=== PATIENT | female | born 1980 ===

== ENCOUNTER 2018-08-10 10:58 | Emergency (ER) | payer SELFPAY ==
[2018-08-10 12:02] VITALS: BMI 28.7
[2018-08-10] MEDS ORDERED: Lactated Ringer's 1,000 ML IV SCH (12:15)
[2018-08-10 13:14] LABS: SQUAMOUS EPITHIAL 2 /hpf (0-5); URINE BACTERIA MANY (<OCC); URINE BILIRUBIN NEGATIVE (NEGATIVE); URINE BLOOD NEGATIVE (NEGATIVE); URINE CLARITY SLIGHTY-CLOUDY (Clear); URINE COLOR YELLOW (YELLOW); URINE GLUCOSE (UA) >=500 mg/dL (NEGATIVE); URINE LEUKOCYTE ESTERASE NEG Leu/uL (Negative); URINE PROTEIN NEGATIVE (NEGATIVE); URINE UROBILINOGEN 0.2-1.0 mg/dL (0.2-1.0)
--- NOTE | 2018-08-10 15:31 | US ---
Date of service: 08/10/2018 PROCEDURE: Limited Ob ultrasound HISTORY: r/o labor risk, evaluate cervical length COMPARISON: None available. TECHNIQUE: Transvaginal pelvic ultrasound was performed. FINDINGS: The cervix is long and closed. The cervical length measures 3.9 cm. IMPRESSION: Long and closed cervix. Cervical length measures 3.9 cm.
--- NOTE | 2018-08-10 16:59 | OBHP ---
Datetime: 08/10/2018 12:11 IP Adm Impression: , intrauterine IP Admit Plan: Observation/Evaluation; Discharge home Admit Comment, IP Provider: 37-year-old at 27.2 weeks (dated on U/S) presents from [facility] with abdominal pain that waxes and wanes for a duration of 1 day. Prior to today the pain u sually resolved with food however patient feels like it is getting worse. Pain is RUQ and LLQ, does n ot radiate and feels like cramping. She also complains of pain with urination. 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 She denies fever, vaginal bleeding, l oss of fluid from vagina, headache, nausea, change in vision, chest pain, SOB, vomiting, diarrhea, ne w-onset edema and sick contacts. Last sexual intercourse was January 2018. OBGYN: Dr Tovar PMH: chago, OB dx vaginitis today Meds: vaginal cream x3days Allergies: denies OBHx: Family Hx: denies Social: denies Surgical Hx: denies Labs: wnl as per patient, no records available for confirmation ROS: all other systems reviewed and negative unless noted in HPI. P.E: Vitally stable at this time. Patient is resting comfortably in her hospital bed. EFM: reactive NST Heart: S1 And S2 appreciated on exam. Lungs: Clear auscultation bilaterally. No wheezes, rhonchi or crackles. Abdomen: Gravid, soft.. Normo-active bowel sounds. Negative CVA tenderness. Mild tenderness to RUQ and LLQ palpation. Extremities: +2 distal pulses bilaterally. No lower extremity edema noted. A+P: 37-year-old at 27.2 weeks presents from primary OBGYN with abdominal pain for a duration of 1 day. -Continuous EFM: reactive -IVF: 1L LR -TV U/S: cervival length 3.9; closed -UA: many bacteria, 2 squam, 2 RBC, 5 WBC -C_S pending - will follow-up and will contact patient if antibiotics are necessary ([phone]) -ED precautions given Case seen and discussed with Dr Lala Chinchilla PGY1 OB Hospitalist Addendum: Pt seen and examined by me. Agree w/ above. 37 yo G1 at 27+2 wks c/o a bd pain on and off since yesterday w/ ctxns on the monitor. Pt denies urinary sx. Cervix closed an d thick on exam. FHT reassuring. Pt received IVF. U/s done: Cervix in long and closed, measuring 3 .9 cm. Pt w/ 1 ht glucola 220. Ua w/ many bacteria and 2 sq epi. Urine cx pending. Pt given info about dietary guidelines for GDM as per [facility] [employer]. Pt felt better. Pt discharged home, has an appoint w/ Dr. Garcia tomorrow. (ES) Pelvic Type - PN: Not Done Extremities - PN: Normal Abdomen - PN: Normal Back - PN: Normal Breast - PN: Not Done Lungs - PN: Normal Heart - PN: Normal Thyroid - PN: Not Done Neurologic - PN: Normal HEENT - PN: Normal General - PN: Normal FHR - Baseline A Provider: 140 EGA AdmitDate IP: 27.2 Vital Signs Provider: Reviewed; Within Normal Limits IP Chief Complaint: Uterine contractions; Maternal discomfort NICHD Variability Prov Fetus A: Moderate 6-25bpm NICHD Accel Fetus A IP Provider: [id number] FHR Category Provider Fetus A: Category I NICHD Decel Fetus A IP Provider: None Genitourinary Exam: Not Done DTRs - PN: Not Done
[2018-08-10 23:20] VITALS: BP 115/60; PULSE 107; RESP 18; TEMP 98.4; O2SAT 100
== END 2018-08-10 17:00 | disposition home or self-care (01) ==
LOC: H.EROB2 10:58
DX: O26.92 Pregnancy related conditions, unspecified, second trimester (principal); R10.2 Pelvic and perineal pain; Z3A.27 27 weeks gestation of pregnancy
CPT/HCPCS: 76817; 81003; 87086; 99284; J7120

== ENCOUNTER 2018-10-25 17:30 | Inpatient (IN) | payer MEDICAID, SELFPAY ==
[2018-10-25] MEDS ORDERED: Nalbuphine HCL 10 mg/ml Ampule IVP PRN (17:38)
[2018-10-25] MEDS ORDERED: Oxytocin 30 UNIT in NS 500 ml 30 UNITS/500 ML BAG IV ONE (17:39)
[2018-10-25] MEDS ORDERED: OXYTOCIN/0.9 % NS 20 UNIT/1,000 ML BAG IV SCH (17:45)
[2018-10-25 17:47] VITALS: BMI 28.8
[2018-10-25 18:09] LABS: BASO % 0.3 % (0.0-2.0); EOS # 0.1 K/uL (0.0-0.7); EOS % 0.6 % (0.0-4.0); HEMOGLOBIN 11.9 g/dL (12.0-16.0); LYMPH # 1.7 K/uL (1.0-4.3); LYMPH % 17.9 % (20.0-40.0); MEAN CORPUSCULAR HEMOGLOBIN 30.3 pg (27.0-31.0); MEAN PLATELET VOLUME 8.5 fl (7.2-11.7); MONO # 0.5 K/uL (0.0-0.8); MONO % 4.7 % (0.0-10.0); NEUT # 7.4 K/uL (1.8-7.0); NEUT % 76.5 % (50.0-75.0); RBC 3.92 Mil/uL (3.80-5.20); RED CELL DISTRIBUTION WIDTH 14.9 % (11.5-14.5); WHITE BLOOD COUNT 9.7 K/uL (4.8-10.8)
[2018-10-25] MEDS ORDERED: Dextrose 50% SYRINGE Inj (50 ml) IV PRN (18:25)
[2018-10-25] MEDS ORDERED: Glucagon Recombinant 1 mg Inj IM PRN (18:25)
[2018-10-25] MEDS: Dextrose 5%/Lactated Ringer's 1,000 ML IV SCH (20:50)
[2018-10-25] MEDS ORDERED: Insulin NPH Human 100 Units/ml Inj SC SCH (23:00)
[2018-10-25] MEDS ORDERED: Bicitra 30 ML UD PO ONE (23:01)
[2018-10-26] MEDS: Dextrose 5%/Lactated Ringer's 1,000 ML IV SCH ×2 (04:30→15:30)
[2018-10-26] MEDS ORDERED: Insulin Regular 100 units/ml SC SCH (06:00)
[2018-10-26] MEDS ORDERED: Insulin NPH Human 100 Units/ml Inj SC SCH (09:00)
[2018-10-26] MEDS: Lactated Ringer's 1,000 ML IV SCH ×4 (10:30→20:45)
[2018-10-26] MEDS ORDERED: Lactated Ringer's 500 ML IV SCH (11:00)
[2018-10-26] MEDS ORDERED: Bupivacaine HCl 0.5% PF (30 ml) Inj ONE (13:23)
[2018-10-26] MEDS ORDERED: Fentanyl/Bupivacaine HCl 250 ML EPI ONE (13:45)
[2018-10-26] MEDS ORDERED: Oxytocin 30 UNIT in NS 500 ml 30 UNITS/500 ML BAG IV ONE ×3 (14:30→15:27)
[2018-10-26] MEDS ORDERED: Bicitra 30 ML UD PO ONE (20:47)
[2018-10-26] MEDS ORDERED: cefOXitin 2 GM in Sodium Chloride 0.9% 100 ML IVPB ONE (20:47)
[2018-10-26] MEDS ORDERED: Oxycodone/Acetaminophen 5/325 mg Tab PO PRN ×2 (21:08)
[2018-10-26] MEDS ORDERED: Morphine 5 mg/10 ml preservative-free Inj(Duramorph) ONE (21:15)
[2018-10-26] MEDS ORDERED: Simethicone 80 mg Chewtab PO SCH (22:00)
[2018-10-26] MEDS ORDERED: Dextrose 5%/Lactated Ringer's 1,000 ML IV SCH (22:45)
[2018-10-27] MEDS ORDERED: Dextrose 50% SYRINGE Inj (50 ml) IV PRN (01:35)
[2018-10-27] MEDS ORDERED: Oxycodone/Acetaminophen 5/325 mg Tab PO PRN (01:35)
[2018-10-27] MEDS ORDERED: Dextrose 5%/Lactated Ringer's 1,000 ML IV SCH ×2 (01:35→01:45)
[2018-10-27] MEDS ORDERED: OXYTOCIN/0.9 % NS 20 UNIT/1,000 ML BAG IV SCH (01:35)
[2018-10-27] MEDS ORDERED: Glucagon Recombinant 1 mg Inj IM PRN (01:35)
[2018-10-27 06:01] LABS: BASO # 0.1 K/uL (0.0-0.2); BASO % 0.5 % (0.0-2.0); EOS % 0.4 % (0.0-4.0); HEMOGLOBIN 10.4 g/dL (12.0-16.0); LYMPH # 1.7 K/uL (1.0-4.3); MEAN CELL VOLUME 89.8 fl (81.0-99.0); MEAN CORPUSCULAR HEMOGLOBIN 30.5 pg (27.0-31.0); MEAN PLATELET VOLUME 8.6 fl (7.2-11.7); MONO # 0.5 K/uL (0.0-0.8); MONO % 4.7 % (0.0-10.0); NEUT # 8.7 K/uL (1.8-7.0); NEUT % 79.4 % (50.0-75.0); NRBC % 0.1 % (0.0-0.0); RBC 3.42 Mil/uL (3.80-5.20); RED CELL DISTRIBUTION WIDTH 14.9 % (11.5-14.5)
[2018-10-27] MEDS ORDERED: Multivitamin With Minerals Tab PO SCH (09:00)
[2018-10-27] MEDS: Simethicone 80 mg Chewtab PO SCH ×3 (09:38→22:56)
[2018-10-27] MEDS: Multivitamin With Minerals Tab PO SCH (09:39)
[2018-10-27] MEDS ORDERED: Tdap Vaccine 0.5 ml Vial (10-64 yrs) IM ONE (10:00)
[2018-10-27] MEDS: Oxycodone/Acetaminophen 5/325 mg Tab PO PRN ×2 (15:55→22:56)
--- NOTE | 2018-10-27 17:00 | CP.PCM.PN ---
Subjective - Date & Time of Evaluation Date of Evaluation: 10/27/18 Time of Evaluation: 11:45 - Subjective Subjective: 38 y/o, , s/p C section on 10/26/18 on POD 1. Patient seen and examined at bedside in AM during morning rounds. Patient sitting in chair the baby. Reports mild-moderate lower abdominal pain well controlled with pain medications. Denies any nausea and vomiting, tolerating liquid diet well. Lochia similar to menses. Patient tried to ambulate to bathroom once w/o significant difficulties. Passing flatus but no BM yet. R eports pedal edema but denies headache, dizziness, nausea, vomiting, CP or SOB. Objective - Vital Signs/Intake and Output Vital Signs (last 24 hours): VSS stable, afebrile Intake and Output: 10/27/18 10/27/18 06:59 18:59 Intake Total 4 Balance 4 - Medications Medications: Current Medications Dextrose (Dextrose 50% Inj) 0 ml IV STAT PRN; Protocol PRN Reason: Hypoglycemia Protocol Dextrose (Glutose 15) 0 gm PO ONCE PRN; Protocol PRN Reason: Hypoglycemia Protocol Glucagon (Glucagen Diagnostic Kit) 0 mg IM STAT PRN; Protocol PRN Reason: Hypoglycemia Protocol Ibuprofen (Motrin Tab) 600 mg PO Q6H PRN PRN Reason: Pain, Mild (1-3) Last Admin: 10/27/18 09:39 Dose: 600 mg Ketorolac Tromethamine (Toradol) 30 mg IM Q6 PRN PRN Reason: Pain, moderate (4-7) Last Admin: 10/27/18 02:18 Dose: 30 mg Multivitamins/Minerals (Therapeutic-M Tab) 1 tab PO DAILY RUT Last Admin: 10/27/18 09:39 Dose: 1 tab Oxycodone/Acetaminophen (Percocet 5/325 Mg Tab) 1 tab PO Q4 PRN PRN Reason: Pain, moderate (4-7) Stop: 10/29/18 21:09 Last Admin: 10/27/18 15:55 Dose: 1 tab Oxycodone/Acetaminophen (Percocet 5/325 Mg Tab) 2 tab PO Q4 PRN PRN Reason: Pain, severe (8-10) Stop: 10/29/18 21:09 Sennosides (Senokot Tab) 17.2 mg PO HS RUT Simethicone (Mylicon Chew Tab) 80 mg PO Q6 [facility] Last Admin: 10/27/18 15:55 Dose: 80 mg - Labs Labs: 10/27/18 04:59 - Constitutional Appears: No Acute Distress - Head Exam Head Exam: ATRAUMATIC, NORMAL INSPECTION, NORMOCEPHALIC - Eye Exam Eye Exam: EOMI, PERRL - ENT Exam ENT Exam: Mucous Membranes Moist - Respiratory Exam Respiratory Exam: Clear to Ausculation Bilateral, NORMAL BREATHING PATTERN - Cardiovascular Exam Cardiovascular Exam: REGULAR RHYTHM, +S1, +S2 - GI/Abdominal Exam GI & Abdominal Exam: Tenderness. absent: Distended, Guarding - Extremities Exam Extremities Exam: Pedal Edema. absent: Calf Tenderness, Tenderness - Back Exam Back Exam: absent: CVA tenderness (L), CVA tenderness (R) - Neurological Exam Neurological Exam: Alert, Awake, Oriented x3 - Psychiatric Exam Psychiatric exam: Normal Affect, Normal Mood - Skin Skin Exam: Dry, Intact, Normal Color, Warm Additional comments: Dressing C/D/I. Assessment and Plan - Assessment and Plan (Free Text) Assessment: 38 y/o , H/O gestational DM, S/P C section on POD 1 Plan: - Continue present management - Pain control with Ibuprofen and percocet - H/H 10.4/30.7 - Encourage ambulation - Encourage - D/C accuchecks after 4 pm - Advance diet as tolerated - Continue Senokot, Simethicone as ordered Case discussed with Dr. Guy Toussaint, PGY1
[2018-10-28] MEDS: Simethicone 80 mg Chewtab PO SCH ×5 (04:46→22:02)
[2018-10-28] MEDS: Multivitamin With Minerals Tab PO SCH (08:57)
[2018-10-29] MEDS: Simethicone 80 mg Chewtab PO SCH ×2 (04:57→09:12)
[2018-10-29] MEDS: Oxycodone/Acetaminophen 5/325 mg Tab PO PRN (09:10)
[2018-10-29] MEDS: Multivitamin With Minerals Tab PO SCH (09:10)
[2018-10-29 17:41] VITALS: BP 115/68; PULSE 71; RESP 20; TEMP 97.9; O2SAT 99
--- NOTE | 2018-11-03 08:13 | OP ---
PROCEDURE DATE: 10/26/2018 PREOPERATIVE DIAGNOSES: A 32-year-old, 1, para 0 at 38 plus weeks with failed induction, diabetes, on insulin. POSTOPERATIVE DIAGNOSES: A 32-year-old, 1, para 0 at 38 plus weeks with failed induction, diabetes, on insulin. SURGEON: Tony Tovar MD SALES AGENT [employer]: Tyshawn Harmon MD, who was present throughout the surgery. TYPE OF ANESTHESIA: Spinal. COMPLICATIONS: None. ESTIMATED BLOOD LOSS: 800 mL. DESCRIPTION OF PROCEDURE: After informed consent was obtained, the patient was brought to the operating room, placed on the table where spinal anesthesia was given. Once the anesthesia was found to be sufficient, she was prepped and draped in a normal sterile fashion. About 2 cm above the pubic bone, a skin incision was made with a knife, and the subcutaneous tissue was cut with the Bovie. The fascia was then excised on both the sides using curved Sifuentes scissors. The fascia was from the site of the umbilicus and the rectus muscle was . The peritoneum was incised and we went into the abdominal cavity. Bladder blade was placed. Bladder flap was created. The lower uterine segment incision was made with a knife. It was extended using Bovie and curved Sifuentes scissors. Baby was delivered in ELKIN position. Cord was clamped and cut. There was a cord around the neck that was reduced. After that, placenta delivered manually and sent to Pathology. Uterus was exteriorized and cleared of all clots and debris. . Uterus was very boggy, so extra Pitocin was given. After that, Methergine was given. After that, uterine incision . The gutters were cleared of all the clots and debris. The peritoneum was closed with 2-0 Vicryl in interlocking fashion. Muscles were closed with 2-0 Vicryl in an interlocking fashion. The fascia was closed with #1 Vicryl in a running interlocking fashion. The skin was closed using 3-0 Monocryl. The patient tolerated the procedure well. Lap, sponge, and instrument counts were correct x2. Tony Tovar MD
== END 2018-10-29 13:25 | disposition home or self-care (01) | DRG 540 ==
LOC: H.L&D 17:33 → H.OB/GYN 10-27 01:00
PROVIDERS: ADMIT Obstetrics & Gynecology; ATTEND Obstetrics & Gynecology
PROC: 4A1HXCZ Monitoring of Products of Conception, Cardiac Rate, External Approach (ICD-10-PCS; 2018-10-25)
PROC: 3E0P7VZ Introduction of Hormone into Female Reproductive, Via Natural or Artificial Opening (ICD-10-PCS; 2018-10-25)
PROC: 10D00Z1 Extraction of Products of Conception, Low, Open Approach (ICD-10-PCS; principal; 2018-10-26)
DX: O24.424 Gestational diabetes mellitus in childbirth, insulin controlled (principal); O61.0 Failed medical induction of labor; Z37.0 Single live birth; Z3A.38 38 weeks gestation of pregnancy